=== PATIENT | female | born 1955 | race Caucasian/White ===

== ENCOUNTER 2019-07-10 11:45 | Emergency (ER) | payer OTHER ==
[2019-07-10] MEDS ORDERED: AMOXICILLIN TRIHYD 250 MG CAPSULE PO ONE (12:19)
[2019-07-10] MEDS ORDERED: AMOXICILLIN TR/POT CLAVULANATE 500-125 MG TAB PO ONE (12:19)
--- NOTE | 2019-07-10 12:24 | ER Document Report ---
HPI - HPI Time Seen by Provider: 07/10/19 12:11 Pain Level: 3 Context: Patient is a 64-year-old female who presents emergency department with a chief complaint of cat bite. Patient reports she was taking her sick cat to the poultry veterinarian. She reports that she has 2 bite bhakta, multiple punctures at the base of the right second digit and puncture wounds through the nailbed of the right middle finger. She reports this occurred around 10 AM this morning. She reports the cats immunizations including rabies are up-to-date. She reports her tetanus is up-to-date. Patient here for antibiotics. Past Medical History - General Information source: Patient - Social History Smoking Status: Never Smoker Frequency of alcohol use: None Drug Abuse: None Lives with: Family Family History: None Patient has suicidal ideation: No Patient has homicidal ideation: No - Past Medical History Cardiac Medical History: Reports: None Pulmonary Medical History: Reports: None EENT Medical History: Reports: None Neurological Medical History: Reports: None Endocrine Medical History: Reports: None Renal/ Medical History: Reports: None Malignancy Medical History: Reports: None GI Medical History: Reports: None Musculoskeletal Medical History: Reports None Skin Medical History: Reports None Psychiatric Medical History: Reports: None Traumatic Medical History: Reports: None Infectious Medical History: Reports: None Surgical Hx: Negative Vertical Provider Document - CONSTITUTIONAL Agree With Documented VS: Yes Exam Limitations: No Limitations General Appearance: No Apparent Distress - HEENT HEENT: Atraumatic, Normal ENT Exam, Normocephalic, PERRLA - NECK Neck: Normal Inspection - RESPIRATORY Respiratory: Breath Sounds Normal, No Respiratory Distress - CARDIOVASCULAR Cardiovascular: Regular Rate, Regular Rhythm - GI/ABDOMEN Gastrointestinal: Abdomen Soft, Abdomen Non-Tender, Normal Bowel Sounds - MUSCULOSKELETAL/EXTREMETIES Musculoskeletal/Extremeties: FROM - NEURO Level of Consciousness: Awake, Alert, Appropriate Notes: Patient has 4 puncture wounds noted to the base of the second digit on the right hand on the dorsal aspect and lateral side. There is edema. Patient also has 2 puncture bites noted to the nailbed of the right middle finger. There is some surrounding ecchymosis. No drainage. Patient has good flexion-extension of all digits on the right hand. - DERM Integumentary: Warm, Dry Course - Re-evaluation Re-evalutation: 07/10/19 12:23 We will obtain an x-ray to rule out foreign body or fracture, will clean the wound and give first dose of antibiotics here. 07/10/19 14:06 X-rays negative. Patient did have the wounds copiously soaked and cleaned. I did inform the patient to keep this clean and dry and to take antibiotics to help prevent infection. Patient verbalized understanding. Patient educated to ice, elevate and use Tylenol and ibuprofen as needed for pain. - Vital Signs Vital signs: Temp Pulse Resp BP Pulse Ox 98.0 F 98 18 150/91 H 93 07/10/19 11:50 07/10/19 11:50 07/10/19 11:50 07/10/19 11:50 07/10/19 11:50 - Diagnostic Test Radiology reviewed: Reports reviewed Radiology results interpreted by me: 07/10/19 13:03 Hand X-Ray 07/10/19 12:19 IMPRESSION: No acute bony abnormality. No radiopaque foreign body. Discharge - Discharge Clinical Impression: Cat bite of hand Qualifiers: Encounter type: initial encounter Laterality: right Qualified Code(s): S61.451A - Open bite of right hand, initial encounter Condition: Stable Disposition: HOME, SELF-CARE Additional Instructions: *Today was seen in the emergency department for cat bite. We have placed you on oral antibiotics. We have given your first dose here in the emergency department. You will take this for the next 10 days. This will help prevent in fection. Do keep the wounds clean and dry. You can use an [id number] bacitracin. Please watch out for signs and symptoms of infection to include increased swelling, fever, redness and streaking of redness up the arm. Seek medical attention if you have any of the symptoms. Animal Bites Animal bites are often heavily contaminated with bacteria. In spite of thorough cleansing and proper treatment, these wounds frequently become infected. Bite wounds of the hands are especially prone to complications. Bites are dressed, if possible. Large wounds may require suturing after internal cleansing. Because of infection risk, some large wounds must remain unstitched. Your doctor is trained to advise you on the best treatment for your bite. Call the doctor at once if the wound becomes red, swollen, warm, increasingly painful, or if it begins to drain. Danger signs also include red streaks up the involved extremity, swollen glands in the groin or under the arm, or fever and chills. The risk of rabies from domestic animals is very low. Bats, sick animals, and wild animals may expose you to rabies. The physician, or the health department, will inform you if you will need to receive the rabies vaccine. Augmentin Augmentin is a mixture of amoxicillin and clavulanate. Amoxicillin is a member of the penicillin family. It covers the germs likely to cause ear, bronchial, and urinary infections better than plain penicillin. The addition of clavulanate allows it to cover staph infections of the skin, as well as resistant cases of ear and sinus infections. Your physician has chosen Augmentin for you because of the special nature of your situation. Augmentin is best taken with meals. Nausea after taking the medication is rare, but can occur. Diarrhea can occur, particularly in small children. Vaginal yeast infections, and oral thrush in infants are also common. Contact your physician if these problems occur. Allergy to penicillins is common. If you have had an allergic reaction to any drug of the penicillin family, you should never take any other penicillin. Notify your doctor at once if you develop hives, shortness of breath, swelling, or faintness. Prescriptions: Amox Tr/Potassium Clavulanate [Augmentin 875-125 Tablet] 1 tab PO BID 10 Days tablet Referrals: ANGEL BLOCK MD [Primary Care Provider] - Follow up as needed
--- NOTE | 2019-07-10 13:01 | RADIOLOGY REPORT (SQ) ---
EXAM DESCRIPTION: HAND RIGHT 3 VIEWS COMPLETED DATE/TIME: 07/10/2019 12:33 pm REASON FOR STUDY: cat bite, puncture wound 2nd and 3rd digit COMPARISON: None. EXAM PARAMETERS: NUMBER OF VIEWS: Three views. TECHNIQUE: AP, lateral and oblique radiographic images acquired of the right hand. LIMITATIONS: None. FINDINGS: MINERALIZATION: Normal. BONES: No acute fracture or dislocation. No worrisome bone lesions. Mild degenerative changes at sc attered interphalangeal joints. JOINTS: No effusions. SOFT TISSUES: No soft tissue swelling. No foreign body. OTHER: No other significant finding. IMPRESSION: No acute bony abnormality. No radiopaque foreign body. TECHNICAL DOCUMENTATION: JOB ID: [id number] [employer]- All Rights Reserved Reading location - IP/workstation name: [email or web address]
[2019-07-10 13:22] VITALS: BP 152/90
== END 2019-07-10 13:30 | disposition home or self-care (01) ==
LOC: ER 11:45
DX: S61.352A Open bite of right middle finger with damage to nail, initial encounter (principal); W55.01XA Bitten by cat, initial encounter; Y93.89 Activity, other specified
CPT/HCPCS: 99283; 73130; J3490

== ENCOUNTER 2019-07-31 20:40 | Emergency (ER) | payer OTHER ==
[2019-07-31 20:48] VITALS: BP 152/77
== END 2019-08-01 00:28 | disposition left against medical advice (07) ==
LOC: ER 20:40
DX: Z53.21 Procedure and treatment not carried out due to patient leaving prior to being seen by health care provider (principal)

== ENCOUNTER → 2019-08-11 | Outpatient (CLI) | payer OTHER ==
--- NOTE | 2019-08-11 13:42 | WOMENS IMAGING REPORT ---
EXAM DESCRIPTION: 3D SCREENING MAMMO BILAT COMPLETED DATE/TIME: 08/11/2019 9:18 am REASON FOR STUDY: Z12.31 SCREENING MAMMO Z12.31 ENCNTR SCREEN MAMMOGRAM FOR MALIGNANT NEOPLASM OF B RE COMPARISON: NO PREVIOUS ARE AVAILABLE EXAM PARAMETERS: Standard craniocaudal and mediolateral oblique views of each breast recorded using digital acquisition and breast tomosynthesis. Additional "push-back craniocaudal and mediolateral ob lique images acquired. Read with the assistance of CAD. .FORMER[facility] - [employer] Version 9.2 LIMITATIONS: None. FINDINGS: IMPLANTS: Bilateral subpectoral implants. Findings present which are benign by mammographic criteria. No suspicious masses, calcifications or a rchitectural distortion. Benign mammographic findings may include one or more of the following: Smooth masses, popcorn/rim/co arse calcifications, asymmetries, post-procedure changes, and lesions with long-standing stability. IMPRESSION: BENIGN MAMMOGRAPHIC FINDINGS. BIRADS 2 BREAST DENSITY: b. There are scattered areas of fibroglandular density. BIRAD: ASSESSMENT: 2 BENIGN FINDING(S) RECOMMENDATION: ROUTINE SCREENING Please continue yearly bilateral screening mammography/tomosynthesis in August 2020 COMMENT: The patient has been notified of the results by letter per [place] requirements. Additional no tification policies are in place for contacting patient with suspicious or incomplete findings. Quality ID #[id number]: The [employer] recommends an annual screening mammogram for women aged 40 years or over. This facility utilizes a reminder system to ensure that all patients receive reminder letters, and/or direct phone calls for appointments. This includes reminders for routine scr eening mammograms, diagnostic mammograms, or other Breast Imaging Interventions when appropriate. Th is patient will be placed in the appropriate reminder system. TECHNICAL DOCUMENTATION: FINDING NUMBER: (1) ASSESSMENT: (1) JOB ID: [id number] [employer]- All Rights Reserved Reading location - IP/workstation name: [email or web address]
== END ==
LOC: WI 08:40
PROVIDERS: ATTEND Family Medicine
DX: Z12.31 Encounter for screening mammogram for malignant neoplasm of breast (principal); Z98.82 Breast implant status
CPT/HCPCS: 77063; 77067

== ENCOUNTER → 2019-08-11 | Outpatient (CLI) | payer OTHER ==
[2019-08-11 08:40] LABS: ABSOLUTE LYMPHOCYTES (AUTO) 1.3 10^3/uL (0.5-4.7); ABSOLUTE MONOCYTES (AUTO) 0.4 10^3/uL (0.1-1.4); ABSOLUTE NEUT (AUTO) 2.5 10^3/uL (1.7-8.2); BASOPHILS % (AUTO) 1.1 % (0-2); HEMATOCRIT 43.4 % (36.0-47.0); HEMOGLOBIN 15.3 g/dL (12.0-15.5); MEAN CORPUSCULAR HEMOGLOBIN 33.2 pg (27.0-33.4); MEAN CORPUSCULAR HGB CONC 35.3 g/dL (32.0-36.0); MEAN CORPUSCULAR VOLUME 94 fl (80-97); MONOCYTES % (AUTO) 9.7 % (3-13); PLATELET COUNT 146 10^3/uL (150-450); RED BLOOD COUNT 4.61 10^6/uL (3.72-5.28); RED CELL DISTRIBUTION WIDTH 13.1 % (11.5-14.0); SEGMENTED NEUTROPHILS % (AUTO) 59.2 % (42-78); TOTAL CELLS COUNTED % (AUTO) 100 %; WHITE BLOOD COUNT 4.3 10^3/uL (4.0-10.5)
[2019-08-11 09:00] LABS: ALBUMIN 4.4 g/dL (3.5-5.0); ALKALINE PHOSPHATASE 91 U/L (38-126); ANION GAP 12 (5-19); ASPARTATE AMINO TRANSFERASE 27 U/L (14-36); BILIRUBIN,DIRECT 0.3 mg/dL (0.0-0.4); BILIRUBIN,TOTAL 0.5 mg/dL (0.2-1.3); BLOOD UREA NITROGEN 16 mg/dL (7-20); CALCIUM 8.9 mg/dL (8.4-10.2); CARBON DIOXIDE 26 mmol/L (22-30); CHLORIDE 102 mmol/L (98-107); CHOLESTEROL 163.69 mg/dL (0-200); GLUCOSE 108 mg/dL (75-110); POTASSIUM 4.2 mmol/L (3.6-5.0); TOTAL PROTEIN 7.8 g/dL (6.3-8.2); TRIGLYCERIDES 152 mg/dL (<150)
[2019-08-11 09:13] LABS: DIRECT LDL 95 mg/dL (<100)
[2019-08-11 09:22] LABS: FREE T4 (FREE THYROXINE) 0.74 ng/dL (0.78-2.19)
[2019-08-11 09:30] LABS: PROSTATE SPECIFIC ANTIGEN < 0.060 ng/mL (<4.00); VLDL CHOLESTEROL 30.4 mg/dL (10-31)
[2019-08-11 09:37] LABS: THYROID STIMULATING HORMONE 2.25 uIU/mL (0.47-4.68)
[2019-08-12 16:42] LABS: PHENOBARBITAL (LUMINAL) 16 ug/mL (15-40)
[2019-08-14 07:32] LABS: ESTROGENS TOTAL 148 pg/mL (.)
== END ==
LOC: OD 07:55
PROVIDERS: ATTEND Family Medicine
DX: Q56.0 Hermaphroditism, not elsewhere classified (principal); G40.909 Epilepsy, unspecified, not intractable, without status epilepticus; Z92.23 Personal history of estrogen therapy; R63.5 Abnormal weight gain; Z13.220 Encounter for screening for lipoid disorders; Z13.1 Encounter for screening for diabetes mellitus; Z13.0 Encounter for screening for diseases of the blood and blood-forming organs and certain disorders involving the immune mechanism
CPT/HCPCS: 36415; 80053; 80061; 80184; 80185; 82672; 84153; 84439; 84443; 85025